=== PATIENT | male | born 1990 | race Two or more races ===

== ENCOUNTER 2016-04-29 07:01 | Emergency (ER) | payer MEDICAID ==
--- NOTE | 2016-04-29 07:20 | UCPHY ---
H & P Patient Type: Established Time Seen by Provider: 04/29/16 07:19 HPI/ROS: CHIEF COMPLAINT: cough, fever, myalgias, nausea and vomiting with diarrhea HISTORY OF PRESENT ILLNESS: previously healthy 25-year-old male currently in school. He recalls feeling somewhat unwell the morning of April 27 with a general sense of mild cough. 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 Throughout the day had a mild cough which she treated with Mucinex and generally felt unwell. He had a moderate fever to 102 with diffuse myalgias and intermittent headache. Beginning yesterday at around 10:00 p.m. he started having vomiting of 3 occasions and then yesterday as well at around 3:00 p.m. having several episodes of diarrhea stool. Stool itself appeared yellow nonbloody without any green material. There has been no abdominal pain Travel: None Others: None Antibiotics: None Bad Food: None Bad Water: None Recent Surgery: None REVIEW OF SYSTEMS: Constitutional: See above Eyes: No discharge ENT: Mild sore throat, no adenopathy noted by him. Cardiovascular: No chest pain, no palpitations. Respiratory: There is had a cough which is time has been productive he has had no wheezing Gastrointestinal: See above Genitourinary: No hematuria or frequency. Musculoskeletal: No back pain. Skin: No rashes. Neurological: Intermittent, diffuse. 10 point ROS otherwise negative Source: Patient - Personal History Tetanus Vaccine Date: WITHIN 10 YRS - Medical/Surgical History Hx Asthma: No Hx Chronic Respiratory Disease: No Hx Diabetes: No Hx Cardiac Disease: No Hx Renal Disease: No Hx Cirrhosis: No Hx Alcoholism: No Hx HIV/AIDS: No Hx Splenectomy or Spleen Trauma: No Other PMH: DENIES - Family History Significant Family History: No pertinent family hx - Social History Smoking Status: Former smoker Alcohol Use: Occasionally Drug Use: None - Physical Exam Exam: General Appearance: Alert, no distress. Afebrile. Normal phonation. No respiratory distress. Color is good. Eyes: Pupils equal and round no pallor or injection. No icterus ENT, Mouth: Mucous membranes moist. Pharynx mild erythema but no exudate. TM Clear. Neck: No adenopathy. Supple. No JVD. Trachea in midline. Respiratory: There are no retractions, lungs are clear to auscultation. Cardiovascular: Regular rate and rhythm, no murmur Abdomen: Soft and nontender, no masses, bowel sounds normal. Neurological: Ox3. No motor weakness. Sensation intact. Gait nl. Skin: Warm and dry, no rashes. Musculoskeletal: No joint swelling. Extremities: No edema. Psychiatric: Normal affect. Constitutional: Initial Vital Signs Temperature (C) 37.2 C 04/29/16 07:21 Heart Rate 98 04/29/16 07:21 Respiratory Rate 18 04/29/16 07:21 Blood Pressure 138/96 H 04/29/16 07:21 O2 Sat (%) 96 04/29/16 07:21 O2 Delivery Mode Room Air Allergies/Adverse Reactions: No Known Allergies Allergy (Unverified 04/29/16 07:40) Home Medications: Medication Instructions Recorded Azithromycin [Zithromax] 250 mg PO DAILY #6 tab 04/29/16 Benzonatate 200 mg PO TID PRN #28 capsule 04/29/16 Ondansetron Odt [Zofran Odt 4 mg 8 mg PO TID PRN #10 tab 04/29/16 (*)] Medical Decision Making ED Course/Re-evaluation: Laboratory studies here included a negative influenza swab. He is only really had the diarrhea for about 36 hours. There is no indication at this point in time for stool cultures. I have asked him to consider obtaining a stool culture is still having diarrhea in a day and a half. Thereby he will have the equipment as well as lab samples ordered should he actually produce such. I suspect but then symptoms left subsided. Furthermore is no indication at this point in time for antibiotic administration. However if he fails to improve in the next 2-3 days as I would anticipate, thereby he will go ahead and start Zithromax therapy. Differential Diagnosis: Diagnostic considerations include, but are not limited to, the following: URI, sinusitis, pharyngitis, otitis media, pneumonia, allergy, Gastroenteritis, dehydration, gastritis, mesenteric adenitis, food poisoning, bacterial dysentery - Data Points Medications Given: Discontinued Medications Ondansetron HCl (Zofran Odt) 4 mg PO EDNOW ONE Stop: 04/29/16 07:40 Last Admin: 04/29/16 07:42 Dose: 4 mg Departure - Departure Disposition: Home, Routine, Self-Care Clinical Impression: Influenza-like illness Condition: Good Instructions: Acute Nausea and Vomiting (ED), Viral Syndrome (ED) Additional Instructions: Fluids, but do not take too much juice = Gatorade or 10 K make more sense. Take the Zofran for nausea Take benzonatate for cough If not all better in 3-4 days then start the Zithromax. Submit a stool specimen in 2 days time if your able to Referrals: NONE *PRIMARY CARE P,. [Primary Care Provider] - As per Instructions Stand Alone Forms: School Excuse Prescriptions: Azithromycin [Zithromax] 250 mg PO DAILY #6 tab Benzonatate 200 mg PO TID PRN #28 capsule PRN Reason: Cough, Moderate Ondansetron Odt [Zofran Odt 4 mg (*)] 8 mg PO TID PRN #10 tab PRN Reason: Nausea/Vomiting, Can'T Take Po - PQRS PQRS Measurement: NA
[2016-04-29 07:26] VITALS: BP 138/96; PULSE 98; RESP 18; TEMP 99; O2SAT 96
[2016-04-29] MEDS ORDERED: ONDANSETRON DISINTEGRATING 4 MG TAB PO ONE (07:39)
== END 2016-04-29 09:08 | disposition home or self-care (01) ==
LOC: CED 07:01
DX: B34.9 Viral infection, unspecified (principal); R11.2 Nausea with vomiting, unspecified
CPT/HCPCS: 87400-PO; 99214-PO; G0463-PO